=== PATIENT | female | born 1965 | race Caucasian/White ===

== ENCOUNTER 2021-04-26 13:33 | Emergency (ER) | payer OTHER, SELFPAY ==
[2021-04-26 14:24] VITALS: BP 115/64; PULSE 77; RESP 18; TEMP 36.8; O2SAT 97; BMI 24.3
--- NOTE | 2021-04-26 14:53 | ED.GENADULT ---
HPI - General Adult General Chief complaint: General Medical Stated complaint: nose infection Time Seen by Provider: 04/26/21 14:46 History of Present Illness HPI narrative: Patient is 56 years old complaining that she sees bugs coming out of her nose. Patient denies any fever chills. No systemic complaints. No allergies. No previous history. Patient from home. Related Data Allergies Allergy/AdvReac Type Severity Reaction Status Date / Time No Known Allergies Allergy Verified 04/26/21 14:24 Review of Systems Review of Systems: No chest pain or shortness of breath no diaphoresis All systems reviewed otherwise negative [facility] Past Medical History Attestation statement: The following information was validated with the patient. Surgical History H/O neck surgery History of ankle surgery Previous section S/P hip replacement Social History Social History Advance Directives: Yes Advance Directives Information Provided: Yes Advance Directives on File: No Patient : No Physical Exam Vital Signs: Vital Signs: Last Vital Signs Temp 98.2 F 04/26/21 14:24 Pulse 77 04/26/21 14:24 Resp 18 04/26/21 14:24 BP 115/64 04/26/21 14:24 Pulse Ox 97 04/26/21 14:24 Body Mass Index 24.3 Appearance: Alert. Oriented X3. No acute distress. Eyes: Pupils equal, round and reactive to light. ENT: Pharynx normal. Nose looks patent. There is no foreign object that is observed. Neck: Normal inspection. Neck supple. No lymph nodes noted. No crepitus CVS: Normal heart rate and rhythm. Pulses normal. Normal S1 and S2 Respiratory: No respiratory distress. Breath sounds normal. No Wheezing. No rales Abdomen: Soft and nontender. No rigidity. No distention. good BS x4 Skin: Skin warm and dry. Normal skin color. Normal skin turgor. Extremities: No lower extremity edema. Neurovascular intact to all extremities. No Lacerations. No Rash Neuro: Oriented X 3. No motor deficit. No sensory deficit. Moving all extermities. No slurred speech Medical Decision Making MDM Narrative Medical decision making narrative: Patient complaining of question insect coming from her nose. The material that she brought was examined. There is no warmth that was noticed. Patient's nose was examined. At the current time there is no foreign body noted. Will have patient follow-up with ENT on an outpatient basis. Discharge Plan Discharge Clinical Impression: Foreign body in nose Patient Disposition: Home, Self-Care Referrals: Jalen Soriano [Physician] - 2 days
== END 2021-04-26 16:01 | disposition home or self-care (01) ==
PROVIDERS: Emergency Provider Emergency Medicine Emergency Medical Services
DX: T17.1XXA Foreign body in nostril, initial encounter (principal); X58.XXXA Exposure to other specified factors, initial encounter; Y93.9 Activity, unspecified; Y92.9 Unspecified place or not applicable; Y99.9 Unspecified external cause status
CPT/HCPCS: 99282; 99283

== ENCOUNTER 2021-04-27 07:55 | Emergency (ER) | payer OTHER, SELFPAY ==
[2021-04-27 08:14] VITALS: BP 144/84; PULSE 97; RESP 18; TEMP 36.8; O2SAT 98; BMI 24.3
--- NOTE | 2021-04-27 08:55 | PC.NURSE ---
pt came in again today after being seen yesterday for subjective report of parasites in her face . pt was covered in band aids, reports that all the parasites were stuck to the band aid . items were visualized by three RNs, Esther CALI and Dr. Bee visualized the pts face. no parasites were visualized or any type of bug. pt insisted that they were there, she continued to pick at her face with tweezers stating see I got one! Pt reports no psych history. Contact was made with her who reported a similar story however the time line did not match by several months. pt and her were asked if the would like to speak with a therapist to which they both denied. denies any new behavioral changes in his . pt insisted on leaving, refusing paperwork as she reports shes not crazy
--- NOTE | 2021-04-27 09:18 | ED.GENADULT ---
HPI - General Adult General Chief complaint: General Medical Stated complaint: FB FOLLOW UP Time Seen by Provider: 04/27/21 08:19 Source: patient Mode of arrival: ambulatory Limitations: no limitations History of Present Illness HPI narrative: 56-year-old female with no significant past medical history who presents to the emergency department reports of bugs in her facial wounds since she went to [facility] in November of 2019. Patient states she has noticed these white bugs crawling on her facial wounds and she has gone to her primary care provider and was prescribed topical antibiotics without improvement and she is currently awaiting a solvent mixer appointment. She was seen here yesterday for same complaint and there was no blood seen on her exam and she was referred to ENT and to follow-up with her solvent mixer although she has been unable to obtain an appointment at this time. We had a long conversation with the patient due to she was picking at her face with tweezers after putting bacitracin on her face and showing us the cream on the tweezers saying that they are bugs that are white moving and that how can we not see these bugs that she can and she can feel them. 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 He reports she has never had any psychiatric history and no one in her family has never had any psychiatric history. He reports that she does not drink any alcohol. He does not believe that she needs any mental health at this time and he and patient as well refuse speaking to a therapist/psychiatrist for mental health. She reports that she will follow-up with her primary care provider/solvent mixer an ENT when she has a chance. She denied any additional complaints or concerns at this time. Related Data Allergies Allergy/AdvReac Type Severity Reaction Status Date / Time No Known Allergies Allergy Verified 04/26/21 14:24 Review of Systems Review of Systems: Constitutional : No Weight loss, No Fever, No Chills, No Night Sweats, No Fatigue, No Malaise ENT/Mouth : No Hearing loss, No Ear Pain, No Nasal Congestion, No Sinus Pain, No Hoarseness, No sore throat, No Rhinorrhea, No Swallowing Difficulty Eyes: No Eye Pain, No Swelling, No Redness, No Foreign Body, No Discharge, No Vision Changes Cardiovascular : No Chest Pain, No SOB, No Dyspnea on Exertion, No Orthopnea, No Edema, No Palpitations Respiratory : No Cough, No Sputum, No Wheezing, No Smoke Exposure, No Dyspnea Gastrointestinal : No Nausea, No Vomiting, No Diarrhea, No Constipation, No abdominal Pain, No Hematochezia, No Melena Genitourinary : no irregular bleeding, No Dysuria, No Urinary Frequency, No Hematuria, No Urinary Incontinence, No Urgency, No Flank Pain, No Urinary Flow Changes, No Hesitancy Musculoskeletal : No joint pain, No Myalgias, No Joint Swelling Skin : No Skin Lesions, No rash Neuro : No Weakness, No Numbness, No Paresthesias, No Loss of Consciousness, No Dizziness, No Headache Psych : No Anxiety/Panic, No Depression, No SI/HI/AH/VH, No Social Issues, Heme/Lymph: No Bruising, No Bleeding,No Lymphadenopathy Endocrine : No Polyuria, No Polydipsia, No Temperature Intolerance Yes all other systems are reviewed and are negative [facility] Past Medical History Attestation statement: The following information was validated with the patient. Surgical History H/O neck surgery History of ankle surgery Previous section S/P hip replacement Social History Social History Alcohol intake: never Patient Tobacco Use Status: Former Tobacco user Use of substances other than those prescribed or required for medical reasons: No Advance Directives: Yes Advance Directives Information Provided: Yes Advance Directives on File: No Physical Exam Vital Signs: Vital Signs: Last Vital Signs Temp 98.2 F 04/27/21 08:14 Pulse 97 04/27/21 08:14 Resp 18 04/27/21 08:14 BP 144/84 H 04/27/21 08:14 Pulse Ox 98 04/27/21 08:14 Body Mass Index 24.3 vital signs have been reviewed as normal and appeared to be correct. Blood pressure normal. Heart rate normal. Respiration rate normal. Temperature normal. Oxygen saturation normal. Appearance: Alert. Very anxious. Oriented X3. No acute distress. Head: Normal external exam. Normocephalic. Atraumatic. Eyes: PERRLA. EOMI. Conjunctiva and sclera normal. Eyelids normal. ENT:Pharynx normal. Uvula midline. Moist mucous membranes. Neck: Normal inspection. Neck supple. FROM. No adenopathy. Thyroid Normal. No meningeal signs. No neck mass noted. CVS: Normal heart rate and rhythm. Heart sound normal. No murmurs noted. Pulses normal throughout. Respiratory: No respiratory distress. Painless inspiration. Breath sounds normal. No wheezes/rales/rhonchi noted. Chest nontender. No accessory muscle usage noted or decreased air movement noted. Back: Full range of motion noted. Skin: Well-healing wounds on her forehead and the tip of the nose no parasites/bug/foreign body/surrounding erythema/streaking/induration/fluctuance or signs of infection noted at this time. The rest of the Skin warm and dry. Normal skin color. Normal skin turgor. No rashes/lesions/lacerations noted. Extremities: No lower extremity edema. Extremities exhibit normal range of motion. Extremities nontender. Neuro: Oriented X 3. No motor deficit. No sensory deficit. Reflexes normal. Course Course Course Narrative: 56-year-old female presenting to the ED with complaints of bugs to her chronic wounds since she returned back from [facility] in 2019. Patient is convinced that there are white bugs/parasites crawling on her face although she is placing cream on her face then takes a tweezers and believes that the cream is the actual bugs crawling. We had a lengthy conversation with the patient and her and they do not believe that she needs mental health at this time. She denies any SI/HI. She is not any harm to herself or to community. Will have her follow-up with her primary care provider and ENT/dermatology when she gets an appointment and to return if any new or worsening symptoms. Patient and at bedside understand and agree with this plan. Medical Decision Making Medical Records Medical records reviewed: Yes I reviewed the patient's medical records. Discharge Plan Discharge Clinical Impression: Chronic wound of head, Left against medical advice Patient Disposition: Left Against Medical Advice Instructions: Chronic Wounds (ED), Against Medical Advice (ED) Referrals: Anya Coto MD [Primary Care Provider] - 2 days Interventions: ED Discharge Assessment Last Done: 04/27/21 09:02 Discharge Date/Time: 04/27/21 09:03 Print Language: [place] Citizen
== END 2021-04-27 09:03 | disposition left against medical advice (07) ==
PROVIDERS: Emergency Provider Emergency Medicine Emergency Medical Services; PCP Pediatrics
DX: S00.80XA Unspecified superficial injury of other part of head, initial encounter (principal); X58.XXXA Exposure to other specified factors, initial encounter; Y93.9 Activity, unspecified; Y92.9 Unspecified place or not applicable; Y99.9 Unspecified external cause status
CPT/HCPCS: 99283

== ENCOUNTER 2025-03-16 15:27 | Outpatient (AMB) | payer OTHER, SELFPAY ==
--- NOTE | 2025-03-16 15:28 | MHC.OFFVIS ---
Vital Signs 03/16/25 15:29 Height 5 ft 7 in Weight 149 lb 2 oz BMI 23.4 BP 100/60 Blood Pressure Location Rt brachial Position Sitting Pulse 79 Pulse Source Pulse Oximeter Pulse Oximetry (%) 98 Oxygen Delivery Method Room Air Intake Visit Reasons: Obstructive sleep apnea Allergies heparin Allergy (Intermediate, Verified 03/16/25 15:34) Nose Bleed HPI HPI Obstructive sleep apnea: Details: Ana is a pleasant 60 year old female, former smoker, with underlying FREDY, FRANCINE and facial dermatitis. She was referred by PCP for management of FREDY. She reports longstanding history of FREDY, unknown severity, with last sleep study performed many years ago, unknown location. She was previously on CPAP therapy with inconsistent use due to inability to tolerate mask. She notes ongoing skin issues, unclear etiology, across forehead, nose and around mouth preventing her from being able to reattempt CPAP therapy. She is under the care of [facility] dermatology recently diagnosed with cutaneous lupus and started on biologic for dermatitis. She presents today to discuss alternative options as she continues to report loud snoring, witnessed apneas, nonrestorative sleep and daytime fatigue. At this time, she denies any respiratory symptoms. [facility] Surgical History H/O neck surgery History of ankle surgery Previous section S/P hip replacement Social History Alcohol intake: never Patient Tobacco Use Status: Former Tobacco user Review of Systems ENT Reports Normal hearing present, Denies nasal congestion, Denies nasal discharge, Denies post nasal drip and Denies sore throat Card Denies chest pain, Denies chest pain at rest, Denies chest pain with activity, Denies claudication, Denies leg edema, Denies dyspnea, Denies dyspnea on exertion, Denies orthopnea and Denies paroxysmal nocturnal dyspnea Resp Denies chest congestion, Denies cough, Denies excessive phlegm production, Denies pain on inspiration, Denies pain with cough, Denies dyspnea, Denies dyspnea on exertion, Denies stridor and Denies wheezing Neuro Reports Normal hearing present Aller/Immun Denies seasonal rhinorrhea and Denies wheezing Physical Exam Vital Signs: Last Vital Signs Pulse 79 03/16/25 15:29 BP 100/60 03/16/25 15:29 Pulse Ox 98 03/16/25 15:29 Oxygen Delivery Method Room Air 03/16/25 15:29 BMI result Body Mass Index 23.4 Const General: cooperative, comfortable, no acute distress, well developed and alert Orientation/consciousness: patient oriented x3 Limitations: no limitations HEENT Head: Yes normal to inspection, Yes normocephalic and Yes atraumatic Ears: hearing grossly normal bilaterally and external ears normal Eyes General: appearance normal, both eyes and all related structures Eyelids: Yes eyelids normal Sclerae: sclerae normal EOM: EOMs intact bilaterally Neck Neck: Yes normal visual inspection and Yes no lymphadenopathy Lymphatic: no lymphadenopathy noted Chest Chest palpation & inspection: normal inspection of the chest Resp Effort & Inspection: normal respiratory effort, able to speak in complete sentences, no audible wheezes, no cough, no stridor, not tachypneic, no tripod positioning and no use of accessory muscles Skin Other: warm, dry General skin exam: rashes and/or lesions noted (large forehead lesion, multiple perioral erythematous patches and nose) Neuro General: patient oriented x3 Cranial nerves: Yes Normal hearing present Cognition (Neuro): normal cognition Gait exam (Neuro): Normal gait present Extrem General: Yes normal to inspection, Yes capillary refill normal, Yes no clubbing, cyanosis or edema and Yes no pedal edema Psych Speech and movement: Normal speech and movement present and Clear speech present Affect: normal affect Attitude: cooperative Thought process: Normal thought process present Thought content: Normal thought content present Insight: Good insight present (Psych) Judgement: Good judgement present (Psych) Assessment & Plan Assessment & Plan (1) Obstructive sleep apnea: Code(s): G47.33 - Obstructive sleep apnea (adult) (pediatric) Category: Medical (2) Witnessed episode of apnea: Code(s): R06.81 - Apnea, not elsewhere classified Category: Medical (3) Daytime somnolence: Code(s): R40.0 - Somnolence Category: Medical Plan Ana presents to discuss alternative options to CPAP therapy for known FREDY, unknown severity. We discussed mandibular device vs Inspire as alternatives and she was agreeable to proceed with evaluation for Inspire. Will send for updated PSG and send referral for evaluation of Inspire. All questions were answered and patient is in agreement of plan. Will follow up to review results or sooner if needed. Orders: Orders RT PSG in-lab sleep study Today G47.33 - Obstructive sleep apnea (adult) (pediatric), R06.81 - Apnea, not elsewhere classified, R40.0 - Somnolence Referrals Plastic Surgery Referral G47.33 - Obstructive sleep apnea (adult) (pediatric) Coding Level of Care Code New Pt Level 3 (42959) Diagnoses Obstructive sleep apnea G47.33 Witnessed episode of apnea R06.81 Daytime somnolence R40.0
[2025-03-16 15:29] VITALS: BP 100/60; PULSE 79; O2SAT 98; BMI 23.4
--- OUTSIDE RECORDS SUMMARY | 2025-03-16 17:48 | XMS_ITS | Clinical Summary ---
Author Organization [facility] Address [address] [place] [address] Care Team Providers Care Alcohol Rubber Name Role Phone Patient, Has No Pcp Or Ref Primary Care Provider Unavailable Allergies Active Allergy Reactions Criticality Noted Date Comments Heparin Vomiting,Bloody vomit,Nausea And Vomiting,Unknown,Other (see comments) High 04/03/2009 bleeding Oxycodone-Acetaminophen Vomiting 10/28/2024 Medications buPROPion XL (WELLBUTRIN XL) 150 mg tablet Take 150 mg by mouth every morning. Active QUEtiapine (SEROquel) 25 mg tablet Take 25 mg by mouth nightly. 08/07/2024 Active buPROPion XL (WELLBUTRIN XL) 300 mg tablet Take 300 mg by mouth every morning. Active hydrOXYzine HCL (ATARAX) 25 mg tablet Take 25 mg by mouth nightly. Active nemolizumab-ilt o (NEMLUVIO) injectionIndica tions:Prurigo nodularis Inject 30 mg under the skin every 28 days. Starting on day 28. 1 each 5 11/10/2024 Active gabapentin (NEURONTIN) 100 mg capsuleIndicati ons:Prurigo nodularis Take 1 capsule (100 mg total) by mouth daily as needed (itch). 90 capsule 1 02/03/2025 Active mupirocin (BACTROBAN) 2% ointmentIndicat ions:Prurigo nodularis Apply twice daily to open area central upper forehead until healed. Cover with band aid. 30 g 3 02/18/2025 Active Active Problems No known active problems Encounters Date Type Department Care Team Description 02/18/2025 Orders Only [facility] [address] [place] [id number] Tobias Rodriguez MD Prurigo nodularis 02/12/2025 myChart Message [facility] [address] [place] [phone] Ceramic Design Engineer: Tobias Barnes MD Yikes 02/03/2025 9:00 AM EDT Office Visit [facility] [address] [place] [phone] Ceramic Design Engineer: Tobias Barnes MD Prurigo nodularis (Primary Dx) 02/03/2025 Telephone [facility] [address] [place] [phone] Ceramic Design Engineer: Tobias Barnes MD 01/10/2025 Telephone [facility] [address] [place] [address], [place] [phone] Ceramic Design Engineer: Bebe Gastelum LPN 01/10/2025 myChart Message [facility] 4th Floor [address] [facility], [place] [phone] Ceramic Design Engineer: Tobias Patterson MD What are these? 12/17/2024 myChart Message [facility] 4th Floor [address] [facility], [place] [phone] Ceramic Design Engineer: Tobias Patterson MD White duncan from Last 3 Months Social History Tobacco Use Types Packs/Day Years Used Date Smoking Tobacco: Never Assessed Comments Unknown Sex and Gender Information Value Date Recorded Sex Assigned at Female 10/21/2024 2:39 PM EST Legal Sex Female 2:37 PM EST Gender Identity Female 10/28/2024 11:17 AM EST Sexual Orientation Straight 10/28/2024 11 :17 AM EST Plan of Treatment Upcoming Encounters Date Type Department Care Team (Late st Contact Info) Description 04/07/2025 9:00 AM EDT Office Visit [facility] [address] [place] [phone] Tobias Rodriguez MD [address] [place] [phone] Health Maintenance Due Date Last Done Comments Cervical Cancer Screening 1963 Cologuard 1965 HIV Screening 1965 HPV and Pap Smear 1963 Hepatitis C Screening 1963 Pap Smear 1963 Sigmoidoscopy 1963 Pneumococcal Vaccine: 50+ Years (2 of 2 - PCV) 06/28/2024 06/28/2023 Alcohol/Substance Use Screening 10/06/2024 Depression Screening and Follow-Up 10/06/2024 Social Drivers of Health Annual Screening 10/06/2024 FOBT / Fit Test 01/17/2026 01/17/2025 Mammogram 11/11/2026 11/11/2024 DTaP,Tdap,and Td Vaccines (5 - Td or Tdap) 05/14/2033 05/14/2023, 01/29/2023, 02/14/2022, Additional history exists Colon Cancer Screening 09/13/2034 Colonoscopy 09/13/2034 09/13/2024 Zoster Vaccines Completed 10/02/2020, 08/03/2020 RSV Vaccine (60+ years old and patients) Completed 06/28/2023 COVID-19 Vaccine Completed 06/05/2024, , 01/31/2022, Additional history exists Influenza Vaccine Completed 06/05/2024, , 07/06/2022, Additional history exists Hepatitis B Vaccines Aged Out No long er eligible based on patient's age to complete this topic Insurance [employer] Care Teams Alcohol Rubber Relationship Specialty Start Date End Date Patient, Has No Pcp Or Ref DO NOT EDIT THIS RECORD VIA PROVIDER ON THE FLY PCP - General Juice Scaleman 10/21/24
== END 2025-03-16 15:58 | disposition home or self-care (01) ==
PROVIDERS: PCP Pediatrics; Visit Provider Nurse Practitioner Family
DX: G47.33 Obstructive sleep apnea (adult) (pediatric) (principal); R40.0 Somnolence
CPT/HCPCS: 99203

== ENCOUNTER → 2025-04-18 20:30 | Outpatient (REF) | payer OTHER, SELFPAY ==
--- OUTSIDE RECORDS SUMMARY | 2025-04-18 20:51 | XMS_ITS | Clinical Summary ---
Author Organization [facility] Address [address] [place] [address] Care Team Providers Care Printing Agent Name Role Phone Kavin Haile Primary Care Provid er Allergies Active Allergy Reactions Criticality Noted Date Comments Heparin Other (See Comments) High 11/27/2018 bleeding Medications Medication Sig Dispensed Refills Start Date End Date Status buPROPion (WELLBUTRIN XL) 150 MG 24 hr tablet 2 tablets (300 mg total). 0 11/04/2018 Active Multiple Vitamin (MULTI VITAMIN DAILY PO) Take by mouth. 0 Active Active Problems Problem Noted Date Diagnosed Date Iron deficiency anemia due to chronic blood loss 03/08/2022 Postop check 03/12/2019 Osteoarthritis of one hip, left 12/23/2018 Lumbar back pain with radicu lopathy affecting left lower extremity 11/27/2018 Social History Tobacco Use Types Packs/Day Years Used Date Smoking Tobacco: Former Smokeless Tobacco: Never Alcohol Use Standard Drinks/Week Comments Not Currently 0 (1 standard drink = 0.6 oz pur e alcohol) Sex and Gender Information Value Date Recorded Sex Assigned at Not on file Gender Identity Not on file Sexual Orientation Not on file Job Start Date Occupation Industry Not on file Not on file Not on file Last Filed Vital Signs Vital Sign Reading Time Taken Comments Blood Pressure 133/65 05/13/2024 1:40 PM EDT Pulse 82 05/13/2024 1:40 PM EDT Temperature 36.2 C (97.2 F) 05/13/2024 1:40 PM EDT Respiratory Rate 18 05/13/2024 1:40 PM EDT Oxygen Saturation 99% 05/13/2024 1:40 PM EDT Inhaled Oxygen Concentration - - Weight 68.9 kg (151 lb 12.8 oz) 024 11:15 AM EDT Height 170.2 cm (5' 7 ) 04/26/2024 11:4 8 AM EDT Body Mass Index 23.78 04/26/2024 11:48 AM EDT Plan of Treatment Health Maintenance Due Date Last Done Comments Hepatitis C Screening 1963 Pneumococcal Vaccine (1 of 2 - PCV) 1969 Depression Screening 1975 BMI Counseling 1981 Preventative Health Evaluation 1981 Cervical Cancer Screening (Pap Smear) 01/21/1984 Colon Cancer Screening (Colonoscopy) 01/21/2008 Breast Cancer Screening (Mammogram) 2013 DTap / Tdap / Td (2 - Td or Tdap) 10/14/2021 10/14/2011 COVID-19 Vaccine ( season) 2024 01/31/2022, 07/11/2021, 12/13/2020, Additional history exists Influenza Vaccine (#1) 2025 , 06/20/2022, 07/11/2021, Additional history exists RSV Adult > 60+ Yrs or (1 - 1-dose 75+ series) 2038 Shingrix-Zoster Vaccine Completed 10/02/2020, 08/03 Hepatitis B Vaccines Aged Out No long er eligible based on patient's age to complete this topic RSV Ped < 20 months Aged Out No longe r eligible based on patient's age to complete this topic Care Teams Printing Agent Relationship Specialty Start Date End Date Kavin Haile MBBS [address] [place] [address] PCP - General Internal Medicine 05/10/24
--- OUTSIDE RECORDS SUMMARY | 2025-04-18 20:51 | XMS_ITS | Clinical Summary ---
Author Organization [facility] Address [address] [place] [address] Care Team Providers Care Winder Helper Name Role Phone Kavin Haile MD Primary Care Provider Allergies Active Allergy Reactions Criticality Noted Date [...] Take 25 mg by mouth nightly. Active gabapentin (NEURONTIN) 100 mg capsuleIndicati ons:Prurigo nodularis Take 1 capsule (100 mg total) by mouth 3 times a day. 90 capsule 3 04/07/2025 Active nemolizumab-ilt o (Nemluvio) injectionIndica tions:Prurigo nodularis Inject 30 mg under the skin every 28 days. Starting on day 28. 1 each 5 04/07/2025 Active mupirocin (BACTROBAN) 2% ointmentIndicat ions:Prurigo nodularis Apply twice daily to open area central upper forehead until healed. Cover with band aid. 22 g 1 04/14/2025 Active ruxolitinib (OPZELURA) 1.5 % topical creamIndication s:Dermatitis Apply a thin layer twice daily to affected areas of up to 20% body surface area. Do not exceed more than 60 g/week or 100 g every two weeks. 60 g 3 04/14/2025 Active Active Problems No known active problems Encounters Date Type Department Care Team Description 04/14/2025 9:45 AM EDT Office Visit [facility] Dermatology [address] [place] [phone] Tobias Rodriguez MD Dermatitis (Primary Dx); Prurigo nodularis 04/07/2025 9:00 AM EDT Office Visit [facility] Dermatology [address] [place] [phone] Tobias Rodriguez MD Prurigo nodularis 04/07/2025 Refill [facility] 4th Floor [address], [place] [address] District Service Manager: Zen Zhang Prurigo nodularis 04/07/2025 Telephone [facility] [address]th [address] [place] [address], [place] [phone] District Service Manager: Zen Zhang 02/18/2025 Orders Only [facility] Dermatology [address] [place] [phone] Tobias Rodriguez MD Prurigo nodularis 02/12/2025 myChart Message [facility] Dermatology [address] [place] [phone] District Service Manager: Tobias Barnes MD Yikes 02/03/2025 9:00 AM EDT Office Visit [facility] Dermatology [address] [place] [phone] District Service Manager: Tobias Barnes MD Prurigo nodularis (Primary Dx) 02/03/2025 Telephone [facility] Dermatology [address] [place] [phone] District Service Manager: Tobias Barnes MD from Last 3 Months Social History Tobacco [...] Care Team (Late st Contact Info) Description 07/14/2025 8:45 AM EDT Office Visit [facility] Dermatology [address] [place] [address] Tobias Rodriguez MD [address] [place] [phone] Health Maintenance Due Date Last Done Comments Cervical Cancer Screening 1963 Cologuard 1965 HIV Screening 1965 HPV and Pap Smear 1963 Hepatitis C Screening 1963 Pap Smear 1963 Sigmoidoscopy 1963 Pneumococcal Vaccine: 50+ Years (2 of 2 - PCV) 06/28/2024 06/28/2023 Alcohol/Substance Use Screening 10/06/2024 Depression Screening and Follow-Up 10/06/2024 Social Drivers of Health Annual Screening 10/06/2024 Influenza Vaccine (#1) 2025 , 06/28/2023, 07/06/2022, Additional history exists FOBT / Fit Test 01/17/2026 01/17/2025 Mammogram 11/11/2026 11/11/2024 DTaP,Tdap,and Td Vaccines (5 - Td or Tdap) 05/14/2033 05/14/2023, 01/29/2023, 02/14/2022, Additional history exists Colon Cancer Screening 09/13/2034 Colonoscopy 09/13/2034 09/13/2024 Zoster Vaccines Completed 10/02/2020, 08/03/2020 RSV Vaccine (60+ years old and patients) Completed 06/28/2023 COVID-19 Vaccine Completed 06/05/2024, , 01/31/2022, Additional history exists Hepatitis B Vaccines Aged Out No long er eligible based on patient's age to complete this topic Insurance [facility] Care Teams Winder Helper Relationship Specialty Start Date End Date Kavin Haile MD [address] [place] [address] PCP - General 04/07/25
--- OUTSIDE RECORDS SUMMARY | 2025-04-18 20:51 | XMS_ITS | Data Portability ---
Author Organization [facility], PAIN OFFICE Address [address] [facility] [address] [place] [address] Care Team Providers Care Laboratory Clerk Name Role Phone MICHA PORTILLO Referring Provider [phone] RAPHAEL ADAN Primary Care Provider Assessment Encounter Date Assessment Date Assessment LastModified by Organization Details LastModified Time 06/04/2019 06/04/2019 Ana Arce is a 54 year old woman with low back pain radiating into the both lower extremities. On exam ,she has pain on flexion. MRI Lumbar spine shows Straightening of the lumbar lordosis mild spondylolisthesis . Multilevel neuro foraminal narrowing , greater at L4-5 and L5-S1 levels. Trial of Lumbar epidural steroid injection under fluoroscopic guidance was recommended. The risks and benefits of the procedure were discussed in detail. She wishes to proceed. An appointment has been booked for the same. She needs a emergency medical technician/driver on the day of the procedure. [email or web address] Not available 06/15/2019 16:38:09 06/16/2019 06/16/2019 Ana Arce is a 54 year old woman with low back pain radiating into the both lower extremities. On exam ,she has pain on flexion. MRI Lumbar spine shows Straightening of the lumbar lordosis mild spondylolisthesis . Multilevel neuro foraminal narrowing , greater at L4-5 and L5-S1 levels. He is here for a trial of Lumbar epidural steroid injection under fluoroscopic guidance . The risks and benefits of the procedure were discussed in detail. She wishes to proceed. She will follow up in four weeks. [email or web address] Not available 06/16/2019 15:26:21 07/15/2019 07/15/2019 Ana Arce is a 54 year old woman with right shoulder pain for the past three months . On exam ,she has pain on abduction and limited range of motion of her right shoulder. X-ray right shoulder shows degenerative changes . Calcific tendinitis and bursitis. She is here for a trial of Right shoulder steroid injection under ultrasound guidance . The risks and benefits of the procedure were discussed in detail. She wishes to proceed. She will follow up as needed. [email or web address] Not available 07/15/2019 16:32:14 Plan of Treatment Reminders Order Date Submit Date Provider Last Modified By Organization Details Last Modified Time Details Appointments None record ed. Lab None record ed. Referral None record ed. Procedures None record ed. Surgeries None record ed. Imaging None record ed. Medication Orders None record ed. Patient TargetsNo targets recorded. Patient Instructions Encounter Date Encounter Id Patient Instructions Last Modified By Organization Details Last Modified Time 06/04/2019 [id number] She was advised against bed rest lasting longer than four days and to continue activities as tolerated. [email or web address] Not available 06/15/2019 16:31:01 06/16/2019 [id number] She was advised against bed rest lasting longer than four days and to continue activities as tolerated. [email or web address] Not available 06/16/2019 15:25:55 07/15/2019 [id number] She was advised against bed rest lasting longer than four days and to continue activities as tolerated. [email or web address] Not available 07/15/2019 16:32:07 Reason for Referral None Reported. Problems Name Problem SNOMED Code Status Onset Date Resolution Date Notes Provider Name and Address Organization Details Recorded Time Lumbosacral spondylosis without myelopathy [id number] Brenna naranjo MD [address] , [address], [place], [address], [place] [facility] 9 08:23:56 Degeneration of lumbar intervertebral disc [id number] Brenna naranjo MD [address] , [address], [place], [phone], [place] [facility] 9 08:24:06 Lumbosacral radiculopathy [id number] Brenna naranjo MD [address] , [address], [place], [address], [place] [facility] 9 16:32:55 Spinal stenosis of lumbar region 57183093 Active Luanne naranjo MD [address] [facility] , [address], [place], [address], [place] [facility] 16:33:34 Inflammation of joint of shoulder region 134029180 Active Luanne naranjo MD [address] [facility] , [address], [place], [address], [place] [facility] 16:23:52 Problem Notes None recorded. Procedures Surgical History Date Name Laterality Status Provider Name and Address Organization Details Recorded Time 07/15/20 19 Intra-articular shoulder steroid injection under ultrasound guidance completed Luanne Edmonds MD [address] [facility] , [address], [place], [address], [place] [facility] 07/15/2019 16:27:55 06/16/20 19 Lumbar Epidural steroid injection under fluoroscopic guidance completed Luanne Edmonds MD [address] [facility] , [address], [place], [address], [place] [facility] 06/16/2019 15:25:02 02/27/20 19 Joint Replacement completed Deena Pemberton [place] [facility] 06/04/2019 08:55:48 Tonsillectomy completed Deena Pmeberton [place] [facility] 06/04/2019 08:53:10 Gastric Bypass completed Deena Pemberton [place] [facility] 06/04/2019 08:53:18 Carpal tunnel release completed Deena Pemberton [place] [facility] 06/04/2019 08:54:11 Other completed Deena Pemberton [place] [facility] 06/04/2019 08:56:35 section completed Deena Pemberton [place] [facility] 06/04/2019 08:55:01 Other completed Deena Pemberton [place] [facility] 06/04/2019 08:56:22 Imaging Results None recorded. Procedure Notes None recorded. Medical Equipment None Reported. Allergies Allergen ID Allergen Name Allergen Category Reaction Reaction Severity Criticality Documentation Date Start Date Code Code System Note Provider Name and Address Organization Details Recorded Time 77174 heparin medicatio n Not available Not available Not available 06/04/2019 5224 RxNorm Exces sive bleed ing Deena santana [place] - [facility] 9 08:45:30 Medications Name Sig Start Date Stop Date Status Note LastModified by Organization Details LastModified Time amoxicilli n 500 mg capsule before procedur e active Not Available Not Available No t Available prednisone 20 mg tablet 07/15 completed Not Available Not Available Not Available Aleve 220 mg tablet Take 1 tablet every 12 hours by oral route. active as needed Not Available Not Available Not Available hydromorph one 2 mg tablet 06/04 completed Not Available Not Available Not Available warfarin 1 mg tablet 06/04 completed Not Available Not Available Not Available naproxen 500 mg tablet 06/04 completed Not Available Not Available Not Available enoxaparin 40 mg/0.4 mL subcutaneo us syringe inject 1 injectio n UNDER THE SKIN DAILY IN THE am for 7 days 06/04 completed Not Available Not Available Not Available bupropion HCl XL 150 mg 24 hr tablet, extended release active Not Available Not Available Not Available Fluarix Quad 4010-1366 (PF) 60 mcg (15 mcg x 4)/0.5 mL IM syringe 06/04 completed Not Available Not Available Not Available Flucelvax Quad (PF) 60 mcg (15 mcg x 4)/0.5 mL IM syringe INJECT 0.5ML INTO MUSCLE ONCE 07/15 completed Not Available Not Available Not Available Vitals Date Recorded Heart rate Oxygen saturation Oxygen saturation in Arterial blood by Pulse oximetry Body height Body mass index (BMI) Body weight Systolic And Diastolic Provider Name and Address Organization Details Last Updated DateTime 9 76 /min 97 % 97 % 170.18 cm 28.2 kg/m2 54940.6 3 g 127/85 mm[Hg] Deena Pemberton [place] [facility] 9 08:39:26 Date Recorded Body height Heart rate Oxygen saturation Oxygen saturation in Arterial blood by Pulse oximetry Systolic And Diastolic Provider Name and Address Organization Details Last Updated DateTime 9 170.18 cm 77 /min 98 % 98 % 109/74 mm[Hg] Deena Pemberton [place] [facility] 9 14:16:23 Date Recorded Body height Heart rate Oxygen saturation Oxygen saturation in Arterial blood by Pulse oximetry Systolic And Diastolic Provider Name and Address Organization Details Last Updated DateTime 9 170.18 cm 76 /min 98 % 98 % 111/67 mm[Hg] Luanne naranjo MD [address] , [address] [facility], [facility] [place], [address], [facility] 9 13:51:13 Social History Question Answer Notes LastModified by Organizat ion Details LastModified Time Tobacco Smoking Status Former Smoker Quit x 7 days Not Available [employer] 07/21/2020 03:16:11 Which Illicit Or Recreational Drugs Have You Used? No [id number] Information not available 07/21/2020 Education Post Graduate Information not available 06/04/2019 Live Alone Or With Others? With Others Information not available 06/04/2019 Marital Status Informatio n not available 06/04/2019 How Many Years Have You Smoked Tobacco? 10 [id number] Information not available 07/21/2020 Sex: Unknown Functional Status Question Answer Note LastModified by Organizat ion Details LastModified Time What is your level of alcohol consumption? None [id number] Information not available 07/21/2020 Are you currently employed? 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 Family History Relationship Description Onset Age of this Age Resolved Age Notes LastModified by Organization Details LastModified Time Maternal Grandmother Malignant neoplastic disease Not available 2018 08:49:29 Paternal Grandmother Malignant neoplastic disease Not available 2018 08:49:29 Mother Kidney disease Not available 2018 08:50:24 Notes:Multiple Family member s with Cancer History Medical History Condition Response Neuropathy/Neuralgia Y Hepatitis C Y Arthritis Y Depression Y Gynecological HistoryNo gynecological history recorded. Obstetrics History GPAL:G 0 P 0 0 0 0 Past Encounters Encounter ID Performer Location Encounter Start Date Encounter Closed Date Diagnosis/Indication Diagnosis SNOMED-CT Code Diagnosis ICD10 Code Diagnosis Note [id number] Luanne Edmonds MD PAIN OFFICE [address] [facility] [place] [address] 06/04/2019 08:29:03 06/15/2019 16:40:37 Degeneration of lumbar intervertebral disc 86567268 M51.36 Lumbosacra l spondylosis without myelopathy 78122757 M47.817 Lumbosacra l radiculopathy 3802838 M54.17 Spinal gail nosis of lumbar region 39512567 M48.061 [id number] Luanne Edmonds MD PAIN OFFICE [address] [facility] [address] 06/16/2019 13:36:56 06/16/2019 15:28:24 Degeneration of lumbar intervertebral disc 08917506 M51.36 Lumbosacra l spondylosis without myelopathy 46848261 M47.817 Lumbosacra l radiculopathy 5726407 M54.17 Spinal gail nosis of lumbar region 32904274 M48.061 [id number] Luanne Edmonds MD PAIN OFFICE [address] [facility] [place] [address] 07/15/2019 13:26:39 07/16/2019 14:55:31 Inflammation of joint of shoulder region 408230556 M13.819 Spinal gail nosis of lumbar region 37786109 M48.061 Lumbosacra l radiculopathy 5781181 M54.17 Health Concerns Section Related Observation LastModified by Organization Detai ls LastModified Time None Recorded Concern Status LastModified by Organization Details LastModified Time None Recorded Advance Directives Directive None Recorded Payers Insurance Date Sequence Insurance Name Policy Number Policy Mckenna Covered Member ID Mckenna Member ID Guarantor Name 07/12/[address] [place] [address] [id number] Ana Arce [id number] Ana Arce Notes Date Note Type Note Provider Name and Address Organization Details Recorded Time 06/04/2019 text/html Ana Arce is a 54 year old woman with complaints of low back pain radiating into both lower extremities. She has history of chronic low back pain. She is S/P Left hip replacement and has persistent low back pain radiating into both lower extremities. She describes the pain as a shooting pain , sharp from her buttock region to the leg with numbness, tingling and weakness in her lower extremities. Current pain level is 5-10/10. Pain is aggravated by standing and walking . Pain is relieved a little with tylenol and aleve. She is unable to sleep due to positioning and awakens multiple times at night due to pain. She has no history of bladder or bowel incontinence.MRI Lumbar spine shows Straightening of the lumbar lordosis mild spondylolisthesis . Multilevel neuro foraminal narrowing , greater at L4-5 and L5-S1 levels.She has trialed physical therapy and massage with some pain benefit. She had injections with Dr. James with some pain benefit. Luanne Edmonds MD [address] [facility] , [address], [place], [address], [facility] - Pain Management 06/15/2019 16:43:09 06/16/2019 text/html She is here for a trial of lumbar epidural steroid injection under fluoroscopic guidance. Luanne Edmonds MD [address] [facility] [address], [place], [address], [place] - [facility] 06/16/2019 17:10:16 07/15/2019 text/html She is here for a right shoulder steroid injection under ultrasound guidance. She reports good ongoing pain benefit from lumbar epidural steroid injection under ultrasound guidance. X-ray of the Right Shoulder shows bursitis . Luanne Edmonds MD [address] [facility] , [address], [place], [address], [place] - [facility] 07/18/2019 19:29:00 OBGyn Episode No OBEpisode recorded.
--- OUTSIDE RECORDS SUMMARY | 2025-04-18 20:51 | XMS_ITS | Clinical Summary ---
Author Organization [facility] Address [address] [place] [phone] Phone Care Team Providers Care Meal Grinder Tender Name Role Phone Kavin Haile MD Primary Care Provider Allergies Active Allergy Reactions Criticality Noted Date Comments Heparin Nausea And Vomiting,Other High 04/03/2009 bleeding Oxycodone-Acetaminophen Nausea And Vomiting Medications DAILY MULTI-VITAMIN ORAL Take by mouth. Activ e hydrOXYzine pamoate (VISTARIL) 25 mg capsule 4 Active gabapentin (NEURONTIN) 100 mg capsule TAKE 2 CAPSULES BY MOUTH TWICE DAILY NEEDED 4 Active Opzelura 1.5 % cream APPLY TOPICALLY TO THE AFFECTED AREA ON ARMS, TRUNK TWO TIMES A DAY NEEDED FOR FLARES 4 Active nystatin (MYCOSTATIN) cream Apply topically 2 (two) times a day. APPLY CREAM TOPICALLY TO AFFECTED AREA (S) TWICE DAILY UNTIL HEALED 30 g 3 5 Active buPROPion XL (WELLBUTRIN XL) 300 mg 24 hr tablet Take 1 tablet (300 mg total) by mouth 1 (one) time each day in the morning. 90 each 1 5 Active Active Problems Problem Noted Date Diagnosed Date Degeneration of lumbar intervertebral disc 01/28 Lumbosacral spondylosis without myelopathy 01/28 Other specified arthritis, unspecified shoulder 01/28/2025 Spinal stenosis of lumbar region 04/14/2023 Iron deficiency anemia due to chronic blood loss 03/08/2022 H/O total ankle replacement, right 01/15/2022 Compulsive skin picking 05/02/2021 Facial rash 12/26/2020 Insomnia 07/11/2020 Osteoarthritis of both hips 12/27/2018 Osteoarthritis of one hip, left 12/23/2018 Lumbar back pain with radicu lopathy affecting left lower extremity 11/27/2018 FREDY (obstructive sleep apnea) 09/07/2006 Overview (08/18/2024): UNTREATED (April 2023) Depressive disorder 02/11/2006 Unspecified acute and subacute iridocyclitis 06/2006 Encounters Date Type Department Care Team Description 01/28/2025 12:45 PM EDT Office Visit Adult Medicine [address] [phone] Nurys Hammer PA Fatigue, unspecified type (Primary Dx); Iron deficiency anemia due to chronic blood loss; FREDY (obstructive sleep apnea); Facial rash; Encounter for completion of form with patient 01/21/2025 Telephone Adult Medicine [address] [phone] Kavin Haile MD Forms/questionnaires (FMLA) from Last 3 Months Immunizations Name Administration Dates Next Due Influenza Quadravalent, MDCK , 0.5ml, with preservative (Flucelvax) 6mo and older 06/22/2019 Influenza Quadravalent, mitchell mbinant, 0.5ml, preservative free (Flublok) 18yo and older 06/28/2023 Influenza trivalent, 0.5mL, preservative free (Fluarix; FluLaval; Fluzone) ages 6mo and older (Afluria) 3 years and older 07/06/2022,06/20/2022,07/11/2021,07/05,06/03/2017,06/04/2016 Influenza trivalent, recombi nant, 0.5mL, preservative free (Flublok) 18yo and older 06/05/2024 Influenza trivalent, with pr eservative (Fluzone; Afluria) 6mo and older 06/29/2015,06/19/2014,07/19/2013,08/06 [employer] SARS-CoV-2 COVID-19, mRNA, LNP-S, preservative free 01/31/2022,07/11/2021 Pneumococcal polysaccharide 23 valent (Pneumovax 23) 2yo and older 06/28/2023 RSV, bivalent, protein subun it RSVpreF, 0.5mL, Preservative Free (Arexvy) 60yo and older 06/28/2023 Td Tetanus diptheria (Tdvax) 7yo and older 02/14/2022,05/10/2005 Tdap Tetanus diptheria acell ular pertussis (Boostrix; Adacel) 7yo and older 05/14/2023,01/29/2023,10/14/2011 Zoster recombinant (Shingrix ) 19yo and older 10/02/2020,08/03/2020 Surgical History Surgery Date Site/Laterality Comments HAND SURGERY PROCEDURE:HAND SURGERY JOINT REPLACEMENT PROCEDURE:JOINT REPLACEMENT REPLACEMENT TOTAL HIP LATERA L POSITION TOTAL ANKLE ARTHROPLASTY SECTION, LOW TRANSVERSE HYSTERECTOMY BREAST ENHANCEMENT SURGERY W IMPLANT GASTRIC BYPASS Medical History Medical History Date Comments History of transfusion DX:Histor y of transfusion Arthritis DX:Arthritis 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 Compulsive skin picking Insomnia Osteoarthritis Family History Medical History Relation Name Comments Breast cancer Other 1 2 mat aunts Breast cancer Other 2 2 pat aunts Breast cancer Paternal Grandmother Relation Name Status Comments Other 1 2 mat aunts Other 2 2 pat aunts Alive Paternal Grandmother Social History Tobacco Use Types Packs/Day Years Used Date Smoking Tobacco: Former Smokeless Tobacco: Never Tobacco Cessation:Counseling Given: Not Answered Alcohol Use Standard Drinks/Week Comments Not Currently 0 (1 standard drink = 0.6 oz pur e alcohol) Housing Instability Answer Date Recorde d Are you worried that in the next 2 months you may not have stable housing? No 10/12/2024 Food Access & Nutrition Answer Date Rec orded Do you have access to a vari ety of food including fruits and vegetables? No 10/12/2024 Health Literacy Answer Date Recorded How often do you need to hav e someone help you when you read instructions, pamphlets, or other written material from your doctor or pharmacy? Never 10/12/2024 Caregiver: How often do you need to have someone help you when you read instructions, pamphlets, or other written material from your doctor or pharmacy? Not on file 10/12/2024 Financial Risk Answer Date Recorded How hard is it for you to pa y for the very basics like food, housing, medical care, and air conditioning / heating? Not very hard 10/12/2024 Transportation Answer Date Recorded Has the lack of transportati on kept you from meetings, work, or from getting things needed for daily living? No Has the lack of transportati on kept you from medical appointments or from getting medications? No 10/12/2024 Social Isolation Answer Date Recorded How often do you feel lonely or isolated from th ose around you? Never 10/12/2024 Food Risk Answer Date Recorded Within the past 12 months we worried whether our food would run out before we got money to buy more. Never true 10/12/2024 Within the past 12 months th e food we bought just didn't last and we didn't have money to get more. Never true 10/12/2024 Dependent Care Answer Date Recorded Do you need help finding or paying for care for your loved ones. For example, child care counselor or elderly care for an older adult? No 10/12/2024 Education Answer Date Recorded Do you think completing more education or training, like finishing a GED, going to college, or learning a trade, would be helpful for you? No 10/12/2024 Employment and Income Answer Date Recor ded During the last four weeks, have you been actively looking for work? No 10/12/2024 Living Situation Answer Date Recorded What is your living situation? 0 10/12/2024 Interpersonal Safety Answer Date Record ed Physical Abuse 09/13/2024 Verbal Abuse 09/13/2024 Comments Unknown Sex and Gender Information Value Date Recorded Sex Assigned at Not on file Legal Sex Female 3:08 PM EST Gender Identity Not on file Sexual Orientation Not on file Obstetrics History Para Term AB IAB SAB Ectopic Multiple Livin g Live Births 2 2 2 2 Date Outcome GA Total Labor Labor/2nd/3rd Weight Sex Type Anes PTL Sheyla A1 A5 Name Clin Term Term Last Filed Vital Signs Vital Sign Reading Time Taken Comments Blood Pressure 115/60 01/28/2025 12:42 PM EDT Pulse 82 01/28/2025 12:42 PM EDT Temperature 35.9 C (96.7 F) 01/28/2025 12:42 PM EDT Respiratory Rate 16 01/28/2025 12:42 PM EDT Oxygen Saturation 96% 01/28/2025 12:42 PM EDT Inhaled Oxygen Concentration - - Weight 67 kg (147 lb 12.8 oz) 01/28/2025 12:42 P M EDT Height 170.2 cm (5' 7 ) 01/28/2025 12:42 PM EDT Body Mass Index 23.15 01/28/2025 12:42 PM EDT Plan of Treatment Upcoming Encounters Date Type Department Care Team (Late st Contact Info) Description 05/03/2025 9:15 AM EDT Office Visit [facility] Hematology Oncology [address] [place] [phone] Sushma Calhoun MD [address] [place] [address] Health Maintenance Due Date Last Done Comments HIV Screening 09/13/2022 Hepatitis C Screening 09/13/2022 Pneumococcal Vaccine: 50+ Years (2 of 2 - PCV) 06/28/2024 06/28/2023 Influenza Vaccine (#1) 2025 , 06/28/2023, 07/06/2022, Additional history exists Social Influencers of Health Screening 10/12/2025 10/12/2024 Depression Screening 01/28/2026 01/28/2025, 10/12/19 Breast Cancer Screening 11/11/2026 11/11/19 25, 10/31/2023, 10/29/2022, Additional history exists Cholesterol Screening (Lipid Panel) 04/06/2029 04/06/2024 DTaP,Tdap,and Td Vaccines (6 - Td or Tdap) 05/14/2033 05/14/2023, 01/29/2023, 02/14/2022, Additional history exists Colorectal Cancer Screening: Colonoscopy 09/13/2034 09/13/2024 Zoster Vaccines Completed 10/02/2020, 08/03/2020 RSV Immunization Adult Patients Completed 06/28/2023 COVID-19 Vaccine Completed 06/05/2024, , 01/31/2022, Additional history exists HIB Vaccines Aged Out No longer eligi ble based on patient's age to complete this topic HPV Vaccines Aged Out No longer eligi ble based on patient's age to complete this topic Hepatitis A Vaccines Aged Out No long er eligible based on patient's age to complete this topic Hepatitis B Vaccines Aged Out No long er eligible based on patient's age to complete this topic IPV Vaccines Aged Out No longer eligi ble based on patient's age to complete this topic MMR Vaccines Aged Out No longer eligi ble based on patient's age to complete this topic Meningococcal ACWY Vaccine Aged Out N o longer eligible based on patient's age to complete this topic Meningococcal B Vaccine Aged Out No l onger eligible based on patient's age to complete this topic RSV Immunization Patients Under 20 months Aged Out No longer eligible based on patient's age to complete this topic Varicella Vaccines Aged Out No longer eligible based on patient's age to complete this topic Medical Devices Implanted Type Area Canceling Machine Operator Device Identifier Shelf Expiration Date Model / Serial / Lot Breast Implants Breast Implants Bilateral: Breast Procedures Procedure Name Priority Date/Time Associated Diagnosis Comments THYROID STIMULATING HORMONE WITH REFLEX TO FREE T4 AND FREE T3 Routine 02/03/2025 10:46 AM EDT Fatigue, unspecified type VITAMIN B12 Routine 02/03/2025 10:46 AM EDT Fatigue, unspecified type VITAMIN D 25 HYDROXY Routine 02/03/2025 10:46 AM EDT Fatigue, unspecified type HEMOGLOBIN A1C Routine 01/17/2025 12:58 PM EDT Impaired fasting blood sugar MG MAMMO DIGITAL SCREENING W YASMINE BILAT Routine 11/11/2024 7:37 AM EST Encounter for screening mammogram for breast cancer COLONOSCOPY Routine 09/13/2024 3:18 PM EST Special screening for malignant neoplasms, colon from Last 3 Months or Most Recently Relevant to Health Maintenance Results * Thyroid stimulating hormone with reflex to free t4 and free t3 (02/03/2025 10:46 AM EDT) TSH 0.93 0.40 - 4.00 mcIU/mL LAB CHEMISTRY METHOD 02/03/2025 4:46 PM EDT [facility] Blood Venous blood specimen / Unknown Venipuncture / Unknown 02/03/2025 10:46 AM EDT 02/03/2025 10:46 AM EDT Nurys Hammer PA LAB BLOOD ORDERABLES Final Resul t Performing Organization Address [facility] de Phone Number [facility] [address] [place] [address], [place] [phone] * Vitamin D 25 hydroxy (02/03/2025 10:46 AM EDT) Pathologist [facility] Vit D, 25-Hydroxy 52.5 30.0 - 80.0 ng/mL LAB CHEMISTRY METHOD 02/03/2025 4:46 PM EDT [facility] Blood Venous blood specimen / Unknown Venipuncture / Unknown 02/03/2025 10:46 AM EDT 02/03/2025 10:46 AM EDT us Nurys CALI LAB BLOOD ORDERABLES Final Resul t Performing Organization Address [facility] de Phone Number [facility] [address] [place] [address], [place] [phone] * Vitamin B12 (02/03/2025 10:46 AM EDT) [facility] Vitamin B-12 459 250 - 900 pcg/mL LAB CHEMISTRY METHOD 02/03/2025 9:46 PM EDT [facility] Blood Venous blood specimen / Unknown Venipuncture / Unknown 02/03/2025 10:46 AM EDT 02/03/2025 10:46 AM EDT Nurys Hammer PA LAB BLOOD ORDERABLES Final Resul t [facility] [address] [place] [address], [place] [phone] * Hemoglobin A1c (01/17/2025 12:58 PM EDT) Hemoglobin A1C 5.6 <6.5 % LAB CHEMISTRY METHOD 01/17/2025 10:14 PM EDT [facility] Mean Bld Glu Estim. 114 mg/dL LAB CHEMISTRY METHOD 01/17/2025 10:14 PM EDT [facility] Blood Venous blood specimen / Unknown Venipuncture / Unknown 01/17/2025 12:58 PM EDT 01/17/2025 12:58 PM EDT Kavin Haile MD LAB BLOOD ORDERABLES F inal Result [facility] [address] [place] [address], * MG Mammo Digital Screening w Yasmine bilat (11/11/2024 7:37 AM EST) Anatomical Region Laterality Modality Breast Bilateral Mammography 11/11/2024 1:52 PM EST Impressions 11/11/2024 1:55 PM EST No mammographic evidence of malignancy. BREAST DENSITY: C - The breasts are heterogeneously dense which may obscure small masses. BI-RADS CATEGORY: 2 - BENIGN RECOMMENDATION: Screening bilateral mammogram is recommended in 1 year. MAMMO LOCATION: [facility], [address] [place] [address], [phone], . -------- FINAL REPORT -------- Dictated By: Erika Lambert Dictated Date: 11/11/2024 13:52 ET Assigned Physician: Erika Lambert Reviewed and Electronically Signed By: Erika Lambert Signed Date: 11/11/2024 13:55 ET Workstation ID: [id number] Transcribed By: Self Edit Transcribed Date: 11/11/2024 13:52 ET Narrative 11/11/2024 1:55 PM EST EXAM: Screening Mammogram CLINICAL: 59 years old, Female, routine annual exam. History of a benign right core biopsy 10/11/2016. COMPARISON: 10/31/2023 and as far back as 10/12/2020 TECHNIQUE: Bilateral MLO and CC views were obtained digitally with 3-D mammogram (digital breast tomosynthesis). Computer-aided detection was utilized in evaluation of this exam (CAD). Implant and implant displaced views performed. FINDINGS: No new suspicious mass, architectural distortion, or suspicious calcifications. Visualized implants appear intact. Biopsy clip again noted in the upper outer right breast. Procedure Note Erika Lambert MD - 11/11/2024 EXAM: Screening Mammogram CLINICAL: 59 years old, Female, routine annual exam. History of a benignright core biopsy 10/11/2016. COMPARISON: 10/31/2023 and as far back as 10/12/2020 TECHNIQUE: Bilateral MLO and CC views were obtained digitally with 3-Dmammogram (digital breast tomosynthesis). Computer-aided detection wasutilized in evaluation of this exam (CAD). Implant and implant displacedviews performed. FINDINGS: No new suspicious mass, architectural distortion, or suspiciouscalcifications. Visualized implants appear intact. Biopsy clip againnoted in the upper outer right breast. IMPRESSION: No mammographic evidence of malignancy. BREAST DENSITY: C - The breasts are heterogeneously dense which mayobscure small masses. BI-RADS CATEGORY: 2 - BENIGN RECOMMENDATION: Screening bilateral mammogram is recommended in 1 year. MAMMO LOCATION: [facility], [address] [place] [address], [phone], . -------- FINAL REPORT -------- Dictated By: Erika Lambert Dictated Date: 11/11/2024 13:52 ET Assigned Physician: Erika Lambert Reviewed and Electronically Signed By: Erika Labmert Signed Date: 11/11/2024 13:55 ET Workstation ID: [id number] Transcribed By: Self Edit Transcribed Date: 11/11/2024 13:52 ET Kavin Haile MD IM BI PROCEDURES Bobbi l Result * COLONOSCOPY Anesthesia - MAC; [facility]COPY (09/13/2024 3:18 PM EST) Anatomical Region Laterality Modality Endoscopy 09/13/2024 2:39 PM EST Impressions 09/13/2024 3:18 PM EST - Hemorrhoids found on perianal exam. - Two 6 mm polyps in the sigmoid colon and in the descending colon, removed with a cold snare. Resected and retrieved. - The examination was otherwise normal on direct and retroflexion views. Recommendation: - - Discharge patient to home. - High fiber diet. - Continue present medications. - Await pathology results. - Repeat colonoscopy for surveillance based on pathology results. Narrative 09/13/2024 3:18 PM EST [facility] GI Patient Name: Ana Arce Procedure Date: 09/13/2024 2:39 PM Date of : 1965 Age: 59 Gender: Female Note Status: Finalized Attending MD: Elisa Emery DO, [id number] Procedure Date No Time: 09/13/2024 Procedure: Colonoscopy Indications: Iron deficiency anemia Providers: Elisa Emery DO Referring MD: Medicines: Monitored Anesthesia Care Complications: No immediate complications. Estimated blood loss: Minimal. Estimated Blood Loss: Estimated blood loss was minimal. Procedure: Pre-Anesthesia Assessment: - - Prior to the procedure, a History and Physical was performed, and patient medications and allergies were reviewed. The patient is competent. The risks and benefits of the procedure and the sedation options and risks were discussed with the patient. All questions were answered and informed consent was obtained. Patient identification and proposed procedure were verified by the physician, the nurse, the anesthesiologist, the manager gallery and the screen making technician in the pre-procedure area in the endoscopy suite. Mental Status Examination: alert and oriented. Airway Examination: normal oropharyngeal airway and neck mobility. Respiratory Examination: clear to auscultation. CV Examination: normal. Prophylactic Antibiotics: The patient does not require prophylactic antibiotics. Prior Anticoagulants: The patient has taken no anticoagulant or antiplatelet agents. ASA Grade Assessment: II - A patient with severe systemic disease. After reviewing the risks and benefits, the patient was deemed in satisfactory condition to undergo the procedure. The anesthesia plan was to use monitored anesthesia care (MAC). Immediately prior to administration of medications, the patient was re-assessed for adequacy to receive sedatives. The heart rate, respiratory rate, oxygen saturations, blood pressure, adequacy of pulmonary ventilation, and response to care were monitored throughout the procedure. The physical status of the patient was re-assessed after the procedure. After I obtained informed consent, the scope was passed under direct vision. Throughout the procedure, the patient's blood pressure, pulse, and oxygen saturations were monitored continuously. The Olympus Pediatric Colonoscope was introduced through the anus and advanced to the cecum, identified by appendiceal orifice and ileocecal valve. The colonoscopy was performed without difficulty. The patient tolerated the procedure well. The quality of the bowel preparation was good. Findings: Hemorrhoids were found on perianal exam. Two sessile polyps were found in the sigmoid colon and descending colon. The polyps were 6 mm in size. These polyps were removed with a cold snare. Resection and retrieval were complete. Estimated blood loss was minimal. The exam was otherwise without abnormality on direct and retroflexion views. Procedure Code(s): --- Professional --- 71039, Colonoscopy, flexible; with removal of tumor(s), polyp(s), or other lesion(s) by snare technique Diagnosis Code(s): --- Professional --- K64.9, Unspecified hemorrhoids D12.5, Benign neoplasm of sigmoid colon D12.4, Benign neoplasm of descending colon D50.9, Iron deficiency anemia, unspecified CPT copyright 2020 [employer]. All rights reserved. The codes documented in this report are preliminary and upon professor of kinesiology review may be revised to meet current compliance requirements. ELISA Emery DO 09/13/2024 3:17:58 PM This report has been signed electronically.Elisa Emery DO Number of Addenda: 0 Note Initiated On: 09/13/2024 2:39 PM Scope Withdrawal Time: 0 hours 9 minutes 10 seconds Scope In: 2:59:21 PM Scope Out: 3:16:19 PM Endoscopy Department at [facility] - [address] [place] [phone] Procedure Note Elisa Emery DO - 09/13/2024 [facility] GI Patient Name: Ana Arce Procedure Date: 09/13/2024 2:39 PM Date of : 1965 Age: 59 Gender: Female Note Status: Finalized Attending MD: Elisa Emery DO, [id number] Procedure Date No Time: 09/13/2024 Procedure: Colonoscopy Indications: Iron deficiency anemia Providers: Elisa Emery DO Referring MD: Medicines: Monitored Anesthesia Care Complications: No immediate complications. Estimated blood loss: Minimal. Estimated Blood Loss: Estimated blood loss was minimal. Procedure: Pre-Anesthesia Assessment: - - Prior to the procedure, a History and Physicalwas performed, and patient medications and allergieswere reviewed. The patient is competent. The risks and benefits of the procedure and the sedation optionsand risks were discussed with the patient. Allquestions were answered and informed consent was obtained. Patient identification and proposed procedure were verified by the physician, the nurse, the anesthesiologist, the manager gallery and thetechnician in the pre-procedure area in the endoscopy suite. Mental Status Examination: alert and oriented.Airway Examination: normal oropharyngeal airway and neck mobility. Respiratory Examination: clear to auscultation. CV Examination: normal. Prophylactic Antibiotics: The patient does not requireprophylactic antibiotics. Prior Anticoagulants: The patient has taken no anticoagulant or antiplatelet agents. ASA Grade Assessment: II - A patient with severesystemic disease. After reviewing the risks and benefits,the patient was deemed in satisfactory condition to undergo the procedure. The anesthesia plan was touse monitored anesthesia care (MAC). Immediately priorto administration of medications, the patient was re-assessed for adequacy to receive sedatives. The heart rate, respiratory rate, oxygen saturations, blood pressure, adequacy of pulmonary ventilation,and response to care were monitored throughout the procedure. The physical status of the patient was re-assessed after the procedure. After I obtained informed consent, the scope was passed under direct vision. Throughout theprocedure, the patient's blood pressure, pulse, and oxygen saturations were monitored continuously. TheOlympus Pediatric Colonoscope was introduced through theanus and advanced to the cecum, identified byappendiceal orifice and ileocecal valve. The colonoscopy was performed without difficulty. The patient tolerated the procedure well. The quality of the bowel preparation was good. Findings: Hemorrhoids were found on perianal exam. Two sessile polyps were found in the sigmoid colonand descending colon. The polyps were 6 mm in size.These polyps were removed with a cold snare. Resectionand retrieval were complete. Estimated blood loss was minimal. The exam was otherwise without abnormality ondirect and retroflexion views. Procedure Code(s): --- Professional --- 98475, Colonoscopy, flexible; with removal of tumor(s), polyp(s), or other lesion(s) by snare technique Diagnosis Code(s): --- Professional --- K64.9, Unspecified hemorrhoids D12.5, Benign neoplasm of sigmoid colon D12.4, Benign neoplasm of descending colon D50.9, Iron deficiency anemia, unspecified CPT copyright 2020 [employer]. All rights reserved. The codes documented in this report are preliminary and upon professor of kinesiology reviewmay be revised to meet current compliance requirements. ELISA Emery DO 09/13/2024 3:17:58 PM This report has been signed electronically.Elisa Emery DO Number of Addenda: 0 Note Initiated On: 09/13/2024 2:39 PM Scope Withdrawal Time: 0 hours 9 minutes 10 seconds Scope In: 2:59:21 PM Scope Out: 3:16:19 PM Endoscopy Department at [facility] - [address] [place] [phone] IMPRESSION: - Hemorrhoids found on perianal exam. - Two 6 mm polyps in the sigmoid colon and in the descending colon, removed with a cold snare.Resected and retrieved. - The examination was otherwise normal on directand retroflexion views. Recommendation: - - Discharge patient to home. - High fiber diet. - Continue present medications. - Await pathology results. - Repeat colonoscopy for surveillance based on pathology results. Elisa Emery DO GI~PROCEDURE ORDERABLES Final Re sult from Last 3 Months or Most Recently Relevant to Health Maintenance Insurance [facility] Care Teams Meal Grinder Tender Relationship Specialty Start Date End Date Kavin Haile MD [address] [place] [address] PCP - General 04/25/23
== END ==
LOC: HO.SL 20:30
PROVIDERS: PCP Pediatrics; Visit Provider Nurse Practitioner Family
DX: G47.33 Obstructive sleep apnea (adult) (pediatric) (principal); R40.0 Somnolence; G25.81 Restless legs syndrome; G47.61 Periodic limb movement disorder
CPT/HCPCS: 95810

== ENCOUNTER → 2025-04-18 20:53 | Outpatient (BNV) | payer OTHER, SELFPAY | PROVIDERS: PCP Pediatrics; Visit Provider Internal Medicine | DX: G47.33 Obstructive sleep apnea (adult) (pediatric) (principal); R06.83 Snoring | CPT/HCPCS: 95810 ==